=== PATIENT | male | born 1980 | race Two or more races ===

== ENCOUNTER 2021-08-22 08:25 | Emergency (ER) | payer MEDICAID, OTHER ==
[~2021-08-22] VITALS: Ht 170.2 cm; Wt 102.1 kg
[2021-08-22 08:27] VITALS: BP 137/89
[2021-08-22] MEDS ORDERED: cefTRIAXone SOD 1,000 MG VL ONE (09:29)
[2021-08-22] MEDS ORDERED: KETOROLAC TROMETH 60MG/2ML VIAL IM ONE (09:30)
[2021-08-22] MEDS ORDERED: cefTRIAXone W LIDOCAINE 1 GM IM IM ONE (09:30)
[2021-08-22] MEDS ORDERED: IBUP800T27 PO (09:33)
[2021-08-22] MEDS ORDERED: DICL500C76 PO (09:33)
== END 2021-08-22 09:45 | disposition home or self-care (01) ==
LOC: ER 08:25
DX: L73.9 Follicular disorder, unspecified (principal)
CPT/HCPCS: 96372; 99284; J0696; J1885